=== PATIENT | male | born 2000 | race Asian ===

== ENCOUNTER 2020-11-30 15:40 | Inpatient (IN) | payer OTHER ==
[2020-11-30] MEDS ORDERED: SODIUM CHLORIDE 1,000 ML IV SCH (17:30)
[2020-11-30 18:05] LABS: BASO % 0.3 % (0-2.0); EOS % 1.9 % (0-4.5); HEMOGLOBIN 14.9 GM/dL (11.7-16.9); LYMPH % 29.8 % (8-40); MCH 30.1 pg (25.7-33.7); MCHC 34.8 g/dl (32.0-35.9); MEAN CELL VOLUME 86.7 fl (80-96); MEAN PLT VOLUME 8.8 fl (7.5-11.1); MONO % 7.4 % (3.8-10.2); NEUT % 60.6 % (42.8-82.8); PLATELET COUNT 245 10^3/uL (134-434); RBC 4.96 M/mm3 (4.00-5.60); RDW 12.5 % (11.9-15.9)
[2020-11-30 18:11] LABS: INR 1.02 (0.83-1.09); PROTHROMBIN TIME (PATIENT) 12.3 SEC (9.7-13.0)
[2020-11-30 18:14] LABS: ACTIVATED PTT 32.9 SECONDS (25.2-36.5)
[2020-11-30 18:25] LABS: CHLORIDE 106 mmol/L (98-107); SODIUM 141 mmol/L (136-145)
[2020-11-30 18:27] LABS: ALBUMIN 4.3 g/dl (3.4-5.0); ANION GAP 7 MMOL/L (8-16); BLOOD UREA NITROGEN 10.8 mg/dL (7-18); CALCIUM 8.8 mg/dL (8.5-10.1); CO2 28 mmol/L (21-32); GLUCOSE,RANDOM 92 mg/dL (74-106)
[2020-11-30 18:30] LABS: CHOLESTEROL 135 mg/dL (50-200); CREATININE 1.2 mg/dL (0.55-1.3); SGOT/AST 14 U/L (15-37); SGPT/ALT 30 U/L (13-61); TRIGLYCERIDES 83 mg/dL (0-150)
[2020-11-30 18:31] LABS: BILIRUBIN,TOTAL 0.5 mg/dL (0.2-1); LDL CHOLESTEROL (ONLY SJRH) 83 mg/dL (5-100)
[2020-11-30 18:32] LABS: TOT PROT 7.8 g/dl (6.4-8.2)
[2020-11-30 18:34] LABS: ALK PHOS 89 U/L (45-117); HDL CHOLESTEROL 37 mg/dL (40-60)
[2020-11-30] MEDS ORDERED: ACETAMINOPHEN 325 MG TABLET (FP) PO PRN (20:29)
[2020-11-30] MEDS ORDERED: ONDANSETRON 4 MG/2 ML VIAL IVPUSH PRN (20:33)
[2020-11-30] MEDS ORDERED: MELATONIN 5 MG TABLETS PO PRN (20:36)
[2020-11-30 21:01] LABS: URINE APPEARANCE CLEAR; URINE BILIRUBIN NEGATIVE (NEGATIVE); URINE COLOR YELLOW; URINE GLUCOSE (UA) NEGATIVE (NEGATIVE); URINE KETONE NEGATIVE (NEGATIVE); URINE LEUK ESTERASE NEGATIVE (NEGATIVE); URINE NITRITE NEGATIVE (NEGATIVE); URINE PROTEIN NEGATIVE (NEGATIVE); URINE UROBILINOGEN 0.2 mg/dL (0.2-1.0)
[2020-12-01 00:01] VITALS: BMI 23.2
[2020-12-01 09:08] LABS: HEMATOCRIT 41.6 % (35.4-49); HEMOGLOBIN 14.6 GM/dL (11.7-16.9); MCH 30.5 pg (25.7-33.7); MCHC 35.1 g/dl (32.0-35.9); MEAN CELL VOLUME 86.9 fl (80-96); MEAN PLT VOLUME 9.4 fl (7.5-11.1); PLATELET COUNT 244 10^3/uL (134-434); RBC 4.79 M/mm3 (4.00-5.60); RDW 12.5 % (11.9-15.9); WHITE BLOOD COUNT 7.3 K/mm3 (4.0-10.0)
[2020-12-01 09:30] LABS: CHLORIDE 106 mmol/L (98-107); SODIUM 140 mmol/L (136-145)
[2020-12-01 09:32] LABS: ANION GAP 7 MMOL/L (8-16); BLOOD UREA NITROGEN 13.1 mg/dL (7-18); CALCIUM 8.6 mg/dL (8.5-10.1); CO2 28 mmol/L (21-32)
[2020-12-01 09:33] LABS: GLUCOSE,RANDOM 83 mg/dL (74-106)
[2020-12-01 15:44] VITALS: BP 132/63; PULSE 66; TEMP 98.4
== END 2020-12-01 18:00 | disposition home or self-care (01) | DRG 125 ==
LOC: JER 15:40 → JERBED 18:35 → J4W 22:51
PROVIDERS: ADMIT Internal Medicine; ATTEND Internal Medicine
DX: H53.8 Other visual disturbances (principal); F90.9 Attention-deficit hyperactivity disorder, unspecified type
CPT/HCPCS: 36415; 70450-TC; 70551-TC; 71046-TC-FY; 80048; 80053; 80061; 81003; 82550; 82607; 83036; 84484; 85025; 85027; 85610; 85651; 85730; 86140; 86618; 87476; 93005; 93010; 93880-TC; 99285-25; C9803; U0003; U0005